=== PATIENT | female | born 1970 | race African-American/Black ===

== ENCOUNTER 2017-11-09 14:02 | Emergency (ER) | payer MEDICAID, OTHER ==
[~2017-11-09] VITALS: Ht 160 cm; Wt 87.1 kg
[2017-11-09 14:18] LABS: Urine WBC None Seen /hpf (0 - 5)
[2017-11-09 14:25] LABS: Urine Bacteria NONE SEEN /hpf (None Seen); Urine Blood Negative /uL (Negative)
[2017-11-09 14:40] LABS: Basophils # (auto) 0.1 uL; Eosinophils # (auto) 0.1 uL; Lymphocytes # (auto) 1.5 uL; Monocytes # (auto) 0.6 uL; Monocytes % (auto) 8.8 % (0.0-12.0)
[2017-11-09 14:41] LABS: Basophils % (auto) 1.1 % (0.0-2.0); Eosinophils % (auto) 1.4 % (0.0-7.0); Hematocrit 39.3 % (36.0-46.0); Hemoglobin 12.6 g/dL (12.2-16.2); Lymphocytes % (auto) 23.1 % (10.0-50.0); Mean Corpuscular Hemoglobin 25.1 pg (28.0-32.0); Mean Corpuscular Hgb Conc. 32.2 g/dL (32.0-36.0); Mean Corpuscular Volume 78.1 fL (80.0-100.0); Neutrophils # (auto) 4.3 uL; Neutrophils % (auto) 65.6 % (37.0-80.0); Nucleated Red Blood Cells % 0.1 %; Platelet Count (auto) 287 10^3/uL (140-450); Red Blood Cells 5.03 10^6/uL (4.0-5.20); Red Cell Distribution Width 17.4 % (11.8-14.3); White Blood Cell 6.6 10^3/uL (4.4-10.8)
[2017-11-09 14:45] LABS: Alcohol, Urine < 3.0 mg/dL (0-5); Amphetamine Screen, Urine NEGATIVE (NEGATIVE); Barbiturate Scree,Urine NEGATIVE (NEGATIVE); Benzodiazephine Screen, Urine NEGATIVE (NEGATIVE); Cannabinoid Screen, Urine NEGATIVE (NEGATIVE); Cocaine Screen, Urine NEGATIVE (NEGATIVE); Opiate Scree,Urine NEGATIVE (NEGATIVE); Phencyclidine Screen, Urine NEGATIVE (NEGATIVE)
[2017-11-09 14:52] LABS: Alanine Aminotransferase 35 U/L (13-56); Albumin 3.5 g/dL (3.4-5.0); Anion Gap 9 (5-15); Aspartate Aminotransferase 29 U/L (15-37); BUN/Creatinine Ratio 9.4; Blood Urea Nitrogen 8 mg/dL (7-18); Calcium 8.1 mg/dL (8.5-10.1); Carbon Dioxide 25 mmol/L (21-32); Chloride 102 mmol/L (98-107); GFR African American 93 mL/min; GFR Non-African American 77 mL/min; Glucose 86 mg/dL (74-106); Potassium 3.5 mmol/L (3.5-5.1); Sodium 136 mmol/L (136-145)
[2017-11-09 14:58] LABS: Alkaline Phosphatase 78 U/L (45-117); Bilirubin, Total 0.3 mg/dL (0.2-1.0); Total Protein 7.6 g/dL (6.4-8.2)
[2017-11-09 18:54] VITALS: BP 148/54
== END 2017-11-09 20:18 | disposition left against medical advice (07) ==
LOC: ER 14:02
DX: R07.9 Chest pain, unspecified (principal); I10 Essential (primary) hypertension; Z53.29 Procedure and treatment not carried out because of patient's decision for other reasons; Z88.0 Allergy status to penicillin
CPT/HCPCS: 36415; 80053; 80307; 81001; 84484; 85025; 93005

== ENCOUNTER 2017-11-11 12:22 | Emergency (ER) | payer MEDICAID, OTHER ==
[~2017-11-11] VITALS: Ht 160 cm; Wt 86.2 kg
[2017-11-11 12:35] VITALS: BP 165/96
[2017-11-11] MEDS ORDERED: KETOROLAC TROMETH 60MG/2ML VIAL IM ONE (13:30)
== END 2017-11-11 14:24 | disposition home or self-care (01) ==
LOC: ER 12:22
DX: S29.012A Strain of muscle and tendon of back wall of thorax, initial encounter (principal); I10 Essential (primary) hypertension; Z88.0 Allergy status to penicillin; X50.0XXA Overexertion from strenuous movement or load, initial encounter; Y93.89 Activity, other specified; Y99.8 Other external cause status; Y92.812 Truck as the place of occurrence of the external cause
CPT/HCPCS: 96372; 99283; J1885

== ENCOUNTER 2019-10-01 14:35 | Emergency (ER) | payer OTHER ==
[~2019-10-01] VITALS: Ht 160 cm; Wt 86.2 kg
[2019-10-01 17:04] VITALS: BP 156/93
[2019-10-01] MEDS ORDERED: MORPHINE SULF INJ 2 MG/ML SYRINGE 1ML ONE (17:11)
[2019-10-01] MEDS ORDERED: ONDANSETRON HCL 4 MG/2 ML VIAL ONE (17:11)
== END 2019-10-01 17:39 | disposition home or self-care (01) ==
LOC: ER 14:35
DX: S83.92XA Sprain of unspecified site of left knee, initial encounter (principal); L02.32 Furuncle of buttock; L02.214 Cutaneous abscess of groin; I10 Essential (primary) hypertension; F17.210 Nicotine dependence, cigarettes, uncomplicated; Z88.0 Allergy status to penicillin; X58.XXXA Exposure to other specified factors, initial encounter; Y93.89 Activity, other specified; Y92.89 Other specified places as the place of occurrence of the external cause; Y99.8 Other external cause status
CPT/HCPCS: 73562; 99283; J2270; J2405

== ENCOUNTER 2019-11-14 15:06 | Emergency (ER) | payer MEDICAID, OTHER ==
[~2019-11-14] VITALS: Ht 160 cm; Wt 78.0 kg
[2019-11-14 15:14] VITALS: BP 134/89
[2019-11-14] MEDS ORDERED: KETOROLAC TROMETH 60MG/2ML VIAL IM ONE (15:45)
[2019-11-14 17:05] LABS: Eosinophils # (auto) 0.1 10 ^3/uL (0-0.8); Eosinophils % (auto) 1.7 % (0.0-7.0); Monocytes # (auto) 0.5 10 ^3/uL (0-1.3); Nucleated Red Blood Cells % 0.2 %
[2019-11-14 17:07] LABS: Basophils # (auto) 0.1 10 ^3/uL (0-0.2); Basophils % (auto) 0.8 % (0.0-2.0); Hematocrit 39.7 % (36.0-46.0); Lymphocytes # (auto) 1.6 10 ^3/uL (0.4-5.4); Lymphocytes % (auto) 24.5 % (10.0-50.0); Mean Corpuscular Hemoglobin 26.5 pg (28.0-32.0); Mean Corpuscular Hgb Conc. 32.9 g/dL (32.0-36.0); Mean Corpuscular Volume 80.7 fL (80.0-100.0); Monocytes % (auto) 7.1 % (0.0-12.0); Neutrophils # (auto) 4.4 10 ^3/uL (1.6-8.6); Neutrophils % (auto) 65.9 % (37.0-80.0); Platelet Count (auto) 319 10^3/uL (140-450); Red Blood Cells 4.92 10^6/uL (4.0-5.20); Red Cell Distribution Width 18.4 % (11.8-14.3); White Blood Cell 6.7 10^3/uL (4.4-10.8)
== END 2019-11-14 17:36 | disposition home or self-care (01) ==
LOC: ER 15:06
DX: S83.92XA Sprain of unspecified site of left knee, initial encounter (principal); I10 Essential (primary) hypertension; Z88.0 Allergy status to penicillin; X58.XXXA Exposure to other specified factors, initial encounter; Y93.89 Activity, other specified; Y92.89 Other specified places as the place of occurrence of the external cause; Y99.8 Other external cause status
CPT/HCPCS: 36415; 73562; 85025; 96372; 99284; J1885